=== PATIENT | female | born 1960 | race Caucasian/White ===

== ENCOUNTER 2017-03-09 11:57 | Emergency (ER) | payer OTHER ==
[~2017-03-09] VITALS: Ht 165.1 cm; Wt 108.9 kg
--- NOTE | 2017-03-09 11:57 | NUR ---
Patient BIBA to bed 7 at this time.
[2017-03-09 12:04] VITALS: BP 129/75
--- NOTE | 2017-03-09 12:04 | NUR ---
Note undone in EDM - 03/09/17 at 1258 by [email or web address] 56/F GUY FROM [place] POSSIBLE OVERDOSE ON TRAZADONE UNKNOW AMOUNT, UNKNOWN DOSAGE. RESPONDS TO VERBAL STIMULI ON ARRIVAL VERY SLEEPY. PT HAS N/V 1 EPISODE;YELLOWISH. SKIN IS PINK/WARM/DRY; AAOX4; LUNGS CLEAR BL; HR EVEN AND REGULAR; PT DENIES ANY FEVER, CP, SOB, OR COUGH AT THIS TIME; PATIENT STATES PAIN OF 0/10 AT THIS TIME; VSS; PATIENT POSITIONED FOR COMFORT; HOB ELEVATED; BEDRAILS UP X2; BED DOWN. ER MADE AWARE OF PT STATUS.
--- NOTE | 2017-03-09 12:04 | NUR ---
56/F GUY FROM [place] POSSIBLE OVERDOSE ON TRAZADONE UNKNOW AMOUNT, UNKNOWN DOSAGE. RESPONDS TO VERBAL STIMULI ON ARRIVAL VERY SLEEPY. PT HAS N/V 1 EPISODE;YELLOWISH. SKIN IS PINK/WARM/DRY; AAOX4; PT STS " I TOOK MEDS BECAUSE I WANT TO END UP MY LIFE .I'M SO TIRED FROM BIPOLAR". LUNGS CLEAR BL; HR EVEN AND REGULAR; PT DENIES ANY FEVER, CP, SOB, OR COUGH AT THIS TIME; PATIENT STATES PAIN OF 0/10 AT THIS TIME; VSS; PATIENT POSITIONED FOR COMFORT; HOB ELEVATED; BEDRAILS UP X2; BED DOWN. ER MADE AWARE OF PT STATUS. Addendum: 03/09/17 at 1306 by MED1 PT STS " I WANT TO END UP MY LIFE BUT IT DOESN'T WORK" PT STS DOESN'T WANT TO DO IT AGAIN.
[2017-03-09 12:20] LABS: BASOPHILS # (AUTO) 0.2 K/uL (0.00-0.22); BASOPHILS % (AUTO) 3.3 % (0.0-2.0); EOSINOPHILS # (AUTO) 0.1 K/uL (0-0.4); EOSINOPHILS % (AUTO) 1.4 % (0.0-4.0); HEMATOCRIT 45.2 % (36-48); HEMOGLOBIN 14.6 g/dL (12.0-16.0); LYMPHOCYTES # (AUTO) 0.9 K/uL (2.5-16.5); LYMPHOCYTES % (AUTO) 11.6 % (20.5-51.1); MEAN CORPUSCULAR HEMOGLOBIN 29 pg (27-31); MEAN CORPUSCULAR HGB CONC 32 g/dL (33-37); MEAN CORPUSCULAR VOLUME 90 fL (80-94); MONOCYTES # (AUTO) 0.5 K/uL (0.8-1.0); MONOCYTES % (AUTO) 6.7 % (1.7-9.3); NEUTROPHILS # (AUTO) 5.8 K/uL (1.8-7.7); PLATELET COUNT (AUTO) 239 K/uL (140-450); RED BLOOD CELL COUNT(AUTO) 5.01 MIL/uL (4.20-5.40); RED CELL DISTRIBUTION WIDTH 12.8 % (11.6-13.7)
--- NOTE | 2017-03-09 12:20 | NUR ---
LAB AT BEDSIDE
--- NOTE | 2017-03-09 12:28 | NUR ---
Patient being evaluated by physician at bedside.
[2017-03-09 12:30] LABS: ANION GAP 12.5 (8-16); CALCIUM 8.8 mg/dL (8.5-10.1); CARBON DIOXIDE 24.6 mmol/L (21-32); CHLORIDE 106 mmol/L (98-107); CREATININE 1.1 mg/dL (0.6-1.3); GFR ARICAN-AMERICAN 66 mL/min (>90); GFR NON ARICAN-AMERICAN 55 mL/min (>90); GLUCOSE 157 mg/dL (74-106); POTASSIUM 4.1 mmol/L (3.5-5.1); SODIUM SERUM 139 mmol/L (136-145); UREA NITROGEN, BLOOD 19 mg/dL (7-18)
[2017-03-09] MEDS ORDERED: ONDANSETRON 4 MG ODT PO ONE (12:30)
--- NOTE | 2017-03-09 12:35 | NUR ---
STRAIT CATH FOR UA. PT TOLERATED PROCEDURE WELL.
[2017-03-09 12:36] LABS: ALANINE AMINOTRANSFERASE 29 U/L (14-59); ALBUMIN 3.7 g/dL (3.4-5.0); ALCOHOL, BLOOD < 3 mg/dL (<3); ALKALINE PHOSPHATASE 105 U/L (46-116); ASPARTATE AMINOTRANSFERASE 15 U/L (15-37); CREATINE KINASE, TOTAL 38 U/L (26-192); TOTAL BILIRUBIN 0.4 mg/dL (0.0-1.0); TOTAL PROTEIN, SERUM 6.7 g/dL (6.4-8.2)
[2017-03-09 12:37] LABS: ACETAMINOPHEN < 0.5 ug/ml (10-30); SALICYLATE < 2.8 mg/dL (2.8-20.0)
[2017-03-09 12:39] LABS: WHITE BLOOD COUNT (AUTO) 7.5 K/uL (4.8-10.8)
--- NOTE | 2017-03-09 12:48 | NUR ---
ADMINISTERED MED ORDER
--- NOTE | 2017-03-09 12:51 | NUR ---
Patient appears to be resting comfortably in bed. Vital Signs within normal limits. Respirations even and unlabored.WILL CONTINUE TO MONITOR. DENIES N/V AT THIS TIME.
--- NOTE | 2017-03-09 12:54 | NUR ---
CONTACTED POISON CONTROL VIA TELEPHONE RECEIVED INSTRUCTIONS FOR CARE OF SAVANA[facility] MEDICATION AND INFORMED MD.
--- NOTE | 2017-03-09 14:03 | NUR ---
GAVE REPORT TO JUSTINA VILLATORO Addendum: 03/09/17 [facility] 1404 [facility]
[2017-03-09 14:38] VITALS: BP 136/78
--- NOTE | 2017-03-09 14:38 | NUR ---
Patient to be transferred to [facility]. Is being transferred due to HIGH LEVEL. Receiving facility has accepting physician and available space. ER physician has signed transfer form. Patient or responsible green party has agreed to transfer and signed form. Patient belongings inventoried and will be sent with patient. Copy of nursing notes, lab reports, EKG, Physicians Orders and X-rays to be sent with patient. Report called to JUSTINA FITZGERALD at receiving facility. [facility] ambulance service has been called for transfer. JORDAN is QUENTIN.
[2017-03-09 14:44] LABS: AMPHETAMINE, URINE NEG. ng/ml (NEG <=1000); BARBITURATE, URINE NEG. ng/ml (NEG <=200); BENZODIAZEPINE, URINE NEG. ng/mL (NEG <=200); CANNABINOID, URINE NEG. ng/mL (NEG <=50); COCAINE, URINE NEG. ng/mL (NEG <=300); OPIATE, URINE NEG. ng/mL (NEG <=2000); PHENCYCLIDINE SCREEN,URINE NEG. ng/mL (NEG <=25)
== END 2017-03-09 14:38 ==
LOC: MED 11:57
DX: T43.212A Poisoning by selective serotonin and norepinephrine reuptake inhibitors, intentional self-harm, initial encounter (principal); Y92.89 Other specified places as the place of occurrence of the external cause; F31.9 Bipolar disorder, unspecified; Z90.89 Acquired absence of other organs
CPT/HCPCS: 36415; 80053; 80305; 81002; 81025; 82550; 84484; 85025; 93005; 99285; C1758; G0480; G0482; S0119